=== PATIENT | male | born 1970 | race Two or more races ===

== ENCOUNTER 2023-09-24 12:14 | Emergency (ER) | payer OTHER, SELFPAY ==
[2023-09-24 12:16] VITALS: BP 145/83
[2023-09-24 12:35] VITALS: BMI 25.4
--- NOTE | 2023-09-24 12:50 | ED.GENMED ---
History of Present Illness
General
Chief Complaint: Abdominal Pain
Source: patient
Exam Limitations: none
Time Seen by Provider: 09/24/23 12:34
Travel History
Have you had any contact with someone who has COVID-19?: No
Do you have any symptoms of coronavirus? Fever > 100 degrees, chills, cough, shortness of breath, sore throat, loss of taste or smell, muscle aches, or headache?: No
History of Present Illness
History of Present Illness:
52 year old male presents with worsening LLQ pain over 7 days. History of small intestine bacterial overgrowth. Had flare of symptoms over two weeks ago and finished 10 day course of flagyl one week ago. He notes worsening pain since then. The
pain is to the left lower abdomen fairly constant does not radiate. He notes an associated headache but no measurable fever. He notes loose stool. No urinary symptoms. No other complaints at this time.
Phy Exam
Physical Exam
Physical Exam:
General: Well appearing male NAD
HEENT: NC/AT
Heart: RRR, no mumurs
lungs: CTA Bilaterally
ABd; Soft, tender to LLQ no guarding or rebound.
Ext: no cyanosis or edema
Skin; warm, no rashes.
Course
Orders/Labs/Results
Orders:
Orders
09/24/23 12:47
CT Abd/pelvis W Iv Cont Urgent
Comment:
Reason For Exam: llq pain
09/24/23 12:53
Complete Blood Count/With Diff Urgent
Comprehensive Metabolic Panel Urgent
Lipase Urgent
Abnormal Lab Results
09/24/23
12:53
MPV 11.0 H fL
(7.4-10.4)
09/24/23 12:53
09/24/23 12:53
Vital Signs
Initial and Last Documented VS:
Initial Vital Signs
Temp Pulse Resp BP Pulse Ox
97.5 F 70 18 145/83 100
09/24/23 12:16 09/24/23 12:16 09/24/23 12:16 09/24/23 12:16 09/24/23 12:16
Last Documented Vital Signs
Temp Pulse Resp BP Pulse Ox
97.5 F 70 18 145/83 100
09/24/23 12:16 09/24/23 12:16 09/24/23 12:16 09/24/23 12:16 09/24/23 12:16
MDM/Problems Addressed
Differential Diagnosis Includes:
Left lower abdominal pain. History of small intestinal bacterial overgrowth. Could be flareup of this first diverticulitis versus abdominal strain. Will check labs. CT pending.
*Critical Care Note
Total Time (30-74mins, 75-104mins- exclusive of procedures): Not Applicable
Update Note
Update Note:
Patient reevaluated still appears comfortable labs reviewed without significant finding. CT demonstrates no acute finding. Patient reassured. No evidence of obstruction or diverticulitis. Patient has history of small intestinal bacterial
overgrowth. I cannot say that adding another antibiotic will be helpful at this point. Recommend close GI follow-up. Patient in agreement.
ED Attending Note
-
Portions of this chart may have been created with voice recognition software.� Occasional wrong word or��sound alike� substitutions may have occurred due to the inherent limitations of voice recognition software.
Discharge Plan
Departure
Patient Disposition: Home (Routine Discharge)
Date of Disposition: 09/24/23
Time of Disposition: 15:52
Patient with high blood pressure during this ER visit?: No
Discharge Problem:
Abdominal pain
Instructions: Abdominal Pain
Referrals:
Miller Shaw MD [Active] -
Boris Birmingham MD [Family Provider] -
Activity Restrictions/Additional Instructions:
Please return here for worsening symptoms. Follow-up with GI team otherwise
Interventions
Interventions:
*Risk Screen - Suicide Last Done: 09/24/23 12:16
*General Assessment Last Done: 09/24/23 12:16
ED- Fall Risk Assessment Last Done: 09/24/23 12:35
*ED COVID-19 Vaccine History Last Done: 09/24/23 12:16
PD-Xbrnpu-Fdfebdmrdk Assessment Last Done: 09/24/23 12:35
Discharge Date and Time
Print Language: [id number]
[2023-09-24 13:08] LABS: % Basophils 0.4 % (0-2); % Eosinophils 3.4 % (0-6); % Immature Granulocytes 0.2 % (0-0.5); % Lymphocytes 40.3 % (20.5-51.1); % Monocytes 6.1 % (1.7-9.3); % Neutrophils 49.6 % (42.2-75.2); Absolute Eosinophils 0.2 10^3/uL (0-0.7); Absolute Lymphocytes 2.1 10^3/uL (1.2-3.4); Absolute Monocytes 0.3 10^3/uL (0.1-0.6); Absolute Neutrophils 2.6 10^3/uL (1.4-6.5); Hematocrit 42.1 % (39.0-52.0); Hemoglobin 14.2 g/dL (13.0-18.0); Mean Corp Hgb Conc. 33.7 g/dL (33.0-37.0); Mean Corpuscular Volume 85.9 fL (80.0-94.0); Nucleated Red Blood Cells % 0 % (-); Platelet Count 222 10^3/uL (130-400); White Blood Cell Count 5.2 10^3/uL (4.8-10.8)
[2023-09-24 13:26] LABS: ALT (SGPT) 44 U/L (0-50); AST (SGOT) 32 U/L (17-59); Albumin 4.5 g/dl (3.5-5.0); Alkaline Phosphatase 81 U/L (38-126); Blood Urea Nitrogen 9 mg/dl (9-20); Calcium 9.7 mg/dl (8.4-10.2); Carbon Dioxide 28 mmol/L (22-30); Chloride 106 mmol/L (98-107); Estimated Creatinine Clearance 103 ml/min; Glucose 97 mg/dl (70-99); Lipase 68 U/L (23-300); Potassium 4.6 mmol/L (3.5-5.1); Sodium 138 mmol/L (135-145); Total Bilirubin 0.3 mg/dl (0.2-1.3); Total Protein 7.2 g/dl (6.3-8.2); eGFR > 60.00
[2023-09-24 16:01] VITALS: BP 140/80
== END 2023-09-24 16:03 | disposition home or self-care (01) ==
LOC: EMR 12:14
PROVIDERS: Physician Assistant; EMERGENCY PHYSICIAN Emergency Medicine; FAMILY PHYSICIAN Family Medicine
DX: R10.32 Left lower quadrant pain (principal); R19.7 Diarrhea, unspecified; Z90.49 Acquired absence of other specified parts of digestive tract
CPT/HCPCS: 99284; 74177; 80053; 83690; 85025; Q9967

== ENCOUNTER → 2023-11-30 06:24 | Day surgery (SDC) | payer OTHER, SELFPAY | LOC: GI 06:24 | PROVIDERS: ATTENDING PHYSICIAN Internal Medicine Gastroenterology | DX: Z12.11 Encounter for screening for malignant neoplasm of colon (principal); Z98.0 Intestinal bypass and anastomosis status; K57.30 Diverticulosis of large intestine without perforation or abscess without bleeding; K64.8 Other hemorrhoids | CPT/HCPCS: G0121 ==

== ENCOUNTER 2024-01-28 17:06 | Emergency (ER) | payer OTHER, SELFPAY ==
[2024-01-28 17:23] VITALS: BP 116/76
[2024-01-28 17:35] LABS: % Basophils 0.5 % (0-2); % Eosinophils 5.2 % (0-6); % Immature Granulocytes 0.3 % (0-0.5); Absolute Eosinophils 0.3 10^3/uL (0-0.7); Absolute Monocytes 0.4 10^3/uL (0.1-0.6); Absolute Neutrophils 2.6 10^3/uL (1.4-6.5); Hematocrit 36.6 % (39.0-52.0); Hemoglobin 13.2 g/dL (13.0-18.0); Mean Corp Hgb Conc. 36.1 g/dL (33.0-37.0); Mean Corpuscular Hgb 29.3 pg (27.0-31.0); Mean Corpuscular Volume 81.2 fL (80.0-94.0); Mean Platelet Volume 10.7 fL (7.4-10.4); Nucleated Red Blood Cells % 0 % (-); Platelet Count 205 10^3/uL (130-400); Red Blood Cell Count 4.51 10^6/uL (4.70-6.10); Red Cell Dist. Width 12.7 % (11.5-14.5); White Blood Cell Count 6.4 10^3/uL (4.8-10.8)
[2024-01-28 17:53] LABS: ALT (SGPT) 21 U/L (0-50); AST (SGOT) 26 U/L (17-59); Albumin 4.3 g/dl (3.5-5.0); Alkaline Phosphatase 89 U/L (38-126); Blood Urea Nitrogen 9 mg/dl (9-20); Calcium 9.3 mg/dl (8.4-10.2); Carbon Dioxide 25 mmol/L (22-30); Chloride 107 mmol/L (98-107); Glucose 117 mg/dl (70-99); Potassium 4.2 mmol/L (3.5-5.1); Sodium 143 mmol/L (135-145); Total Bilirubin 0.3 mg/dl (0.2-1.3); Total Protein 6.9 g/dl (6.3-8.2); eGFR > 60.00
[2024-01-28 18:05] LABS: Troponin I < 0.012 ng/ml
[2024-01-28 18:09] VITALS: BP 100/75; BMI 24.2
--- NOTE | 2024-01-28 18:24 | ED.GENMED ---
History of Present Illness
General
Chief Complaint: Chest Pain
Source: patient
Exam Limitations: none
Time Seen by Provider: 01/28/24 17:59
History of Present Illness
History of Present Illness:
This is a 53 year old male that comes in with c/o chest pain. States that this morning he started with some discomfort in the chest area and into the left upper arm. States that it is a burning in the arm but denies any radiation into the neck or
jaw. States that sometimes he gets tingling in the lower arm but he doesn't have this today. 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 States that he did run a mile
today but had to stop due to the chest discomfort as he normally runs 2 miles. Denies any fever, chills, SOB, abd pain, nausea, vomiting, diarrhea, headache, dizziness, urinary burning.
Past History
Past History
ED Past Medical History: Hypercholesterolemia
ED Past Surgical History: Appendectomy
Social History
Tobacco: Non-smoker
Alcohol: Occasional
Personal:
Living: with family
Review of Systems
Review of Systems
All Other Systems: ROS reviewed and negative except as documented in HPI and ROS
Constitutional: Reports no symptoms; Denies fever or chills
EENT: Reports no symptoms
Respiratory: Reports no symptoms; Denies cough or trouble breathing
Cardiac: Reports chest pain
ABD/GI: Reports no symptoms; Denies abdominal pain, nausea, vomiting or diarrhea
: Reports no symptoms; Denies dysuria, frequency or urgency
Musculoskeletal: Reports other (Occasional pain left lower leg and foot when runs on Treadmill)
Skin: Reports no symptoms
Neurological: Reports no symptoms; Denies dizzy or headache
Psychiatric: Reports no symptoms
Phy Exam
General Physical Exam
General Presentation: well appearing and no apparent distress
General age: appears stated age
General Skin: warm and dry
General Habitus: normal
General Mental: alert
General Hydration: appears well hydrated
ENT Exam
ENT Exam: TM's normal, pharynx normal and neck supple
Eye Exam
Eye Exam: EOMI
Cardiovascular Exam
Cardiovascular Exam: regular rate/rhythm, no edema, no murmur and normal peripheral pulses
Pulmonary Exam
Pulmonary Exam: lungs clear, no respiratory distress, no rales, chest non tender, no crackles, no rhonchi, no wheezing and no cough
Gastrointestinal Exam
Gastrointestinal Exam: normal bowel sounds, non tender, soft, no organomegaly, no pulsatile mass and non distended
Musculoskeletal Exam
Musculoskeletal Exam: full ROM, no edema and other (No lower leg swelling, redness or tenderness with palpation)
Skin Exam
Skin Exam: normal color, warm/dry, no rash and no petechia
Psychiatric Exam
Psychiatric Exam: normal mood/affect
Scores
Heart Score for Chest Pain Patients
STEMI patient?: No
History: Slightly or Non-Suspicious
ECG: Normal
Age: >45 - <65 years
Risk Factors: No Risk Factors
Troponin: </= Normal Limit
Heart Score for Chest Pain Patients: 1
Heart Score Risk: 2.5% MACE over next 6 weeks
Course
Orders/Labs/Results
Orders:
Orders
01/28/24 17:09
EKG [Electrocardiogram (*1)] Urgent
Reason for Study: Chest Pain
01/28/24 17:10
EKG- Treatment ONCE
01/28/24 17:29
Complete Blood Count/With Diff Urgent
Comprehensive Metabolic Panel Urgent
Troponin I Urgent
01/28/24 18:23
EKG- Treatment ONCE
01/28/24 18:24
Aspirin 325 mg PO NOW STA
Pantoprazole [Protonix IV] 40 mg IV NOW STA
01/28/24 18:33
CR Chest - 2 Views Urgent
Comment:
Reason For Exam: Chest pain
01/28/24 20:30
Electrocardiogram (*1) Urgent
Reason for Study: Chest Pain
Other Reason for Exam: Repeat with Troponin
01/28/24 20:49
Troponin I Urgent
Abnormal Lab Results
01/28/24
17:29
RBC 4.51 L 10^6/uL
(4.70-6.10)
Hct 36.6 L %
(39.0-52.0)
MPV 10.7 H fL
(7.4-10.4)
Neutrophils % 41.0 L %
(42.2-75.2)
Glucose 117 H mg/dl
(70-99)
01/28/24 17:29
01/28/24 17:29
glucose nonfasting, Troponin <0.012
Second Troponin <0.012
Vital Signs
Initial and Last Documented VS:
Initial Vital Signs
Temp Pulse Resp BP Pulse Ox
98 F 81 18 116/76 98
01/28/24 17:23 01/28/24 17:23 01/28/24 17:23 01/28/24 17:23 01/28/24 17:23
Last Documented Vital Signs
Temp Pulse Resp BP Pulse Ox
98 F 68 22 103/74 99
01/28/24 17:23 01/28/24 21:30 01/28/24 21:30 01/28/24 21:00 01/28/24 21:30
MDM/Problems Addressed
Differential Diagnosis Includes:
coronary syndrome,
MDM/Problems Addressed:
This is a 53 year old male that comes in with c/o chest and arm pain. States that this started this morning and is on and off. States that he normally runs 2 miles on the treadmill but had to stop as he had chest discomfort and only did 1 mile.
will check labs, chest x-ray
Repeat ECG: rate 64, NSR> Normal axis, Normal QRS, Negative for ischemia.
Back into see patient. Explained that his chest x-ray is normal and both Troponin are normal. States that every once and while he gets a pain but this only last seconds. Will place patient on the cardiology hot line for further evaluation. Patient
to return with increased pain, or any other concerns.
Chronic conditions affecting care:
NA
Acute Exacerbation and/or Progression of Chronic Illness:
NA
*Radiology
Radiology exam reviewed: radiology read reviewed (Chest-No acute cardiopulmonary abnormality,. )
*Pulse Oximetry
Patient hypoxic: no
*EKG
Interpreted by ED Provider?: Yes
Heart Rate: 81
Rate: normal
Rhythm: sinus
Tiline: normal axis
Interval: normal interval
QRS Pattern: normal QRS
Ischemia: no ischemia
*[place] Interpretation
Rate: normal
Heart Rate: 72
Rhythm: sinus
*Critical Care Note
Total Time (30-74mins, 75-104mins- exclusive of procedures): Not Applicable
ED Attending Note
-
Portions of this chart may have been created with voice recognition software.� Occasional wrong word or��sound alike� substitutions may have occurred due to the inherent limitations of voice recognition software.
Discharge Plan
Departure
Patient Disposition: Home (Routine Discharge)
Date of Disposition: 01/28/24
Time of Disposition: 22:02
Patient with high blood pressure during this ER visit?: No
Condition: Good
Covid-19: Not Applicable
Discharge Problem:
Chest pain
Instructions: Chest Pain DCA Follow Up
Referrals:
Boris Birmingham MD [Family Provider] - Call in 1-3 days for appt
Activity Restrictions/Additional Instructions:
As discussed, your blood work is normal along with your chest x-ray. You have been place on the Cardiology hot line. This means that you will be called the next business day for further evaluation. You may take Aspirin 325 daily until you are seen.
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 This will also help allow your musculoskeletal pain in the right leg heal. IF YOU HAVE INCREASED PAIN, OR YOU HAVE ANY OTHER CONCERNS PLEASE RETURN TO THE EMERGENCY ROOM.
Interventions
Interventions:
*Risk Screen - Suicide Last Done: 01/28/24 21:26
*General Assessment Last Done: 01/28/24 21:26
*Neglect/Abuse Screening Last Done: 01/28/24 21:26
ED- Fall Risk Assessment Last Done: 01/28/24 21:26
ED- Cardiac Assessment Last Done: 01/28/24 21:26
Discharge Date and Time
Print Language: SWAZI
[2024-01-28] MEDS: ASPIRIN 325 MG PO (18:38)
[2024-01-28] MEDS: PROTONIX IV 40 MG IV (18:38)
[2024-01-28 20:48] VITALS: BP 103/74
[2024-01-28 21:00] VITALS: BP 103/74
[2024-01-28 21:20] LABS: Troponin I < 0.012 ng/ml
[2024-01-28 22:00] VITALS: BP 111/76
== END 2024-01-28 22:13 | disposition home or self-care (01) ==
LOC: EMR 17:06
PROVIDERS: Clinical Nurse Specialist Family Health; Emergency Medicine; EMERGENCY PHYSICIAN Emergency Medicine; FAMILY PHYSICIAN Family Medicine
DX: R07.89 Other chest pain (principal); R20.2 Paresthesia of skin; M79.622 Pain in left upper arm; E78.00 Pure hypercholesterolemia, unspecified; Z88.0 Allergy status to penicillin
CPT/HCPCS: 99284; 96374; 71046; 80053; 84484; 85025; 93005

== ENCOUNTER → 2024-02-26 09:30 | Outpatient (REF) | payer OTHER, SELFPAY | LOC: RCS 09:30 | PROVIDERS: ATTENDING PHYSICIAN Internal Medicine Cardiovascular Disease; FAMILY PHYSICIAN Family Medicine | DX: R07.9 Chest pain, unspecified (principal) | CPT/HCPCS: 93306 ==

== ENCOUNTER → 2024-03-03 07:40 | Outpatient (REF) | payer OTHER, SELFPAY | LOC: DHCBC/DCA 07:40 | PROVIDERS: ATTENDING PHYSICIAN Internal Medicine Cardiovascular Disease | DX: R07.9 Chest pain, unspecified (principal) | CPT/HCPCS: 78452; 93017; A9500 ==

== ENCOUNTER → 2025-04-19 07:05 | Outpatient (REF) | payer OTHER, SELFPAY | LOC: RAD 07:05 | PROVIDERS: ATTENDING PHYSICIAN Nurse Practitioner Family | DX: R60.0 Localized edema (principal); L65.9 Nonscarring hair loss, unspecified | CPT/HCPCS: 93922 ==